=== PATIENT | female | born 1990 | race African-American/Black ===

== ENCOUNTER → 2016-06-19 | Outpatient (CLI) | payer OTHER ==
[~2016-06-19] MED LIST: ACET500T3 PO; DICL75 PO
== END ==
LOC: HPND 13:20
PROVIDERS: ATTEND Obstetrics & Gynecology
DX: O36.80X0 Pregnancy with inconclusive fetal viability, not applicable or unspecified (principal); O09.299 Supervision of pregnancy with other poor reproductive or obstetric history, unspecified trimester; Z3A.00 Weeks of gestation of pregnancy not specified; Z36 Encounter for antenatal screening of mother
CPT/HCPCS: 76801

== ENCOUNTER → 2016-07-15 | Outpatient (CLI) | payer OTHER | LOC: HPND 10:53 | PROVIDERS: ATTEND Obstetrics & Gynecology | DX: O09.291 Supervision of pregnancy with other poor reproductive or obstetric history, first trimester (principal); O36.80X0 Pregnancy with inconclusive fetal viability, not applicable or unspecified; Z36 Encounter for antenatal screening of mother; Z3A.12 12 weeks gestation of pregnancy | CPT/HCPCS: 36416; 76813 ==

== ENCOUNTER → 2016-09-02 | Outpatient (CLI) | payer OTHER | LOC: HPND 09:54 | PROVIDERS: ATTEND Obstetrics & Gynecology | DX: O44.22 Partial placenta previa NOS or without hemorrhage, second trimester (principal); O09.292 Supervision of pregnancy with other poor reproductive or obstetric history, second trimester; Z3A.19 19 weeks gestation of pregnancy | CPT/HCPCS: 76805; 76817 ==

== ENCOUNTER → 2016-10-28 | Outpatient (CLI) | payer OTHER | LOC: HPND 09:51 | PROVIDERS: ATTEND Obstetrics & Gynecology | DX: O09.292 Supervision of pregnancy with other poor reproductive or obstetric history, second trimester (principal); Z3A.27 27 weeks gestation of pregnancy | CPT/HCPCS: 76816 ==